=== PATIENT | male | born 1960 | race Caucasian/White ===

== ENCOUNTER 2021-03-22 06:43 | Emergency (ER) | payer MEDICAID, OTHER ==
[~2021-03-22] VITALS: Ht 170.2 cm; Wt 67.0 kg
--- NOTE | 2021-03-22 06:43 | NUR ---
INITIAL PT CONTACT. PT PRESENTS TO ED VIA EMS C/O SOB X1 HOUR. PT HAS HX OF ASTHMA. PT WAS FOUND TO HAVE ROOM AIR SAT OF 88% UPON ARRIVAL. PT WAS GIVEN 1 ALBUTEROL AND 1 DUO NEB TX WITH EMS AND STATES HE "FEELS MUCH BETTER AND CAN BREATHE A LOT BETTER NOW". PT O2 SAT IMPROVED TO 97% FOLLOWING RESP TX. PT TRANSFERED FROM EMS [facility] TO ED [facility], AMBULATORY WITH STEADY GAIT. UPON TRANSFER FROM THE [facility], PT NOTED TO HAVE BUGS CRAWLING ON BODY. WHEN ASKED, PT STATES "I HAVE HAD THEM FOR QUITE AWHILE". PT WILL BE TAKEN TO [facility] AND PLACED IN CLEAN CLOTHING AND A NEW ROOM.
--- NOTE | 2021-03-22 06:57 | NUR ---
BEDSIDE REPORT TO RICHA CHEN
[2021-03-22] MEDS ORDERED: PLEASE ENTER ALLERGIES MC SCH (07:00)
--- NOTE | 2021-03-22 07:09 | NUR ---
PATIENT IN [facility] ROOM.
--- NOTE | 2021-03-22 07:21 | NUR ---
ERMD AT BEDSIDE FOR EVALUATION.
--- NOTE | 2021-03-22 07:27 | NUR ---
X-RAY NOTIFIED PATIENT IS BACK IN ROOM.
[2021-03-22 08:09] VITALS: BP 129/82
--- NOTE | 2021-03-22 08:19 | NUR ---
Patient provided clean clothes, given discharge instructions and prescription and they have confirmed that they understand the instructions. Patient belongings taken by patient. Patient stable and ambulatory with steady gait from ED.
== END 2021-03-22 08:20 | disposition home or self-care (01) ==
LOC: ED 07:22
DX: J44.1 Chronic obstructive pulmonary disease with (acute) exacerbation (principal); I10 Essential (primary) hypertension; R06.00 Dyspnea, unspecified; R06.02 Shortness of breath
CPT/HCPCS: 71045; 99283; J7512